=== PATIENT | male | born 1990 | race Caucasian/White ===

== ENCOUNTER 2016-06-30 17:19 | Emergency (ER) | payer OTHER ==
[~2016-06-30] VITALS: Ht 180.3 cm; Wt 98.2 kg
[2016-06-30 17:22] VITALS: BP 142/83
== END 2016-06-30 19:56 | disposition home or self-care (01) ==
LOC: ED 19:00
DX: M25.571 Pain in right ankle and joints of right foot (principal)
CPT/HCPCS: 99284

== ENCOUNTER 2018-04-10 03:29 | Emergency (ER) | payer OTHER ==
[~2018-04-10] VITALS: Ht 180.3 cm; Wt 86.7 kg
[2018-04-10] MEDS ORDERED: PROP10TA16 PO (03:35)
[2018-04-10] MEDS ORDERED: SERT50TA28 PO (03:35)
--- NOTE | 2018-04-10 03:42 | NUR ---
CSM INTACT, SOME ETOH THIS EVENING, HERE WITH FRIENDS, VERY PLEASANT YOUNG MAN
[2018-04-10] MEDS ORDERED: KETAMINE 10 MG/ML, 20ML ONE (04:30)
[2018-04-10] MEDS ORDERED: KETAMINE 10 MG/ML, 20ML IVPush ONE (04:30)
[2018-04-10] MEDS ORDERED: LORazepam 2 MG/ML, 1ML ONE (05:02)
--- NOTE | 2018-04-10 05:23 | NUR ---
PT TOLERATED PROCEDURAL SEDATION WELL. CONSENT WITH CHART. PROCEDURAL SEDATION PACKET COMPLETED AND WITH CHART. PT FRIENDS AT BS TO GIVE PT RIDE HOME WHEN PT IS READY FOR D/C. ALL QUESTIONS ANSWERED.
[2018-04-10] MEDS ORDERED: LORazepam 2 MG/ML, 1ML IVPush ONE (05:30)
--- NOTE | 2018-04-10 05:54 | NUR ---
PT SLEEPING IN [facility] AT THIS TIME; DONN. FRIENDS AT . PT FRIENDS GIVEN PT D/C SUMMARY AND SCRIPTS. ALL QUESTIONS ANSWERED. WILL CONTINUE TO RECOVER PT UNTIL SAFE TO D/C. DR VEL KNUTSON.
--- NOTE | 2018-04-10 06:23 | NUR ---
PT SLEEPING IN GURNEY; COLLEEN. FRIENDS AT BEDSIDE. PT VSS AT THIS TIME.
[2018-04-10 08:13] VITALS: BP 108/47
--- NOTE | 2018-04-10 08:19 | NUR ---
PT REPOSITIONED UPRIGHT IN [facility], AROUSES TO NOXIOUS STIMULI, VSS, ON 2L NC, FRIENDS AT BEDSIDE
== END 2018-04-10 09:33 | disposition home or self-care (01) ==
LOC: ED 03:59
DX: S52.591A Other fractures of lower end of right radius, initial encounter for closed fracture (principal); F10.120 Alcohol abuse with intoxication, uncomplicated; W01.0XXA Fall on same level from slipping, tripping and stumbling without subsequent striking against object, initial encounter; Y93.89 Activity, other specified; Y92.410 Unspecified street and highway as the place of occurrence of the external cause; Y99.8 Other external cause status
CPT/HCPCS: 25605; 73090; 73100; 96374; 99285; J2060